=== PATIENT | male | born 1975 | race Caucasian/White ===

== ENCOUNTER 2019-05-19 05:14 | Day surgery (SDC) | payer BC ==
[~2019-05-19] VITALS: Ht 177.8 cm; Wt 124.7 kg
[~2019-05-19 05:14] MED LIST: FLOMAX0.4 MG PO; IBUPROFEN800 MG PO; OMEPRAZOLE20 M1 PO; ULTRAM50 MG PO; ZYRTEC10 MG PO
[2019-05-19 05:46] VITALS: BP 112/71; Ht 177.8 cm; Wt 124.7 kg
[2019-05-19] MEDS ORDERED: SMZ-TMP DS 800-1 TAB PO (07:47)
[2019-05-19] MEDS ORDERED: HYDROCODON-ACE1 EA10 PO (07:47)
--- NOTE | 2019-05-19 09:23 | NUR ---
908-DISCHARGE CRITERIA MET. DRESSINGS TO BILATERAL HANDS CDI. CAP REFILL WNL. ABLE TO WIGGLE DIGITS. DENIES PAIN. FINGERS WARM TO TOUCH. VSS. REVIEWED POST OPERATIVE INSTRUCTIONS AND FOLLOW UP APPOINTMENT. DR MOORE GAVE PAIN SCRIPT PRIOR TO SURGERY DAY. VERBALIZED UNDERSTANDING.
--- NOTE | 2019-05-19 09:25 | NUR ---
0918-ESCORTED OUT VIA W/C WITH SPOUSE TO DRIVE HOME.
--- NOTE | 2019-05-19 12:57 | OP ---
PATIENT NAME: SHILA MG MEDICAL RECORD: [id number] :75 [facility] AD[facility] DATE: SURGEON: BAL MOORE DO DATE OF OPERATION: 05/19/2019 PROCEDURE PERFORMED: Bilateral endoscopic carpal tunnel release. PREOPERATIVE DIAGNOSIS: Bilateral carpal tunnel syndrome. POSTOPERATIVE DIAGNOSIS: Bilateral carpal tunnel syndrome. 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 He had nerve conduction studies done there, which showed bilateral carpal tunnel syndrome. He said that they would fall asleep on him all the time when he was driving, talking on the phone or using them just randomly and his first 3 and half of his fourth digits would get numb and be painful, it would often wake him up at night. He is tired of dealing with that, want something done surgically about it. I have informed him of the risks including infection, bleeding, damage to the median nerve, the possibility of a transligamentous median nerve, motor branch to the thumb. He was aware of that and aware of all the risks and signed the consent. SURGEON: Bal Moore DO I was assisted by Weston Dixon, certified surgical payroll assistant. DESCRIPTION OF PROCEDURE: The patient was taken to the operative suite, laid in the supine position, given general anesthetic and LMA was placed. He was given a gram of vancomycin and the bilateral upper extremities were prepped and draped in sterile fashion. A timeout was performed, everyone was in agreement as to the correct side, site, patient and procedure. We then began with the right one. The right upper extremity was then exsanguinated and Esmarch tourniquet was inflated to 250 mmHg up to 12 minutes. I then made an incision along the distal wrist crease centered over the palmaris longus tendon and a Ragnell dissection was then made bluntly down to the median nerve. The fascia from the former was released from distal to proximal under direct visualization. I then entered the carpal tunnel with the dilators and the sheath was entered in. The camera was then entered in giving good view of the transverse carpal ligament. It was rasped and probed to ensure there was no transligamentous nerve. I did not see one. The blade was then brought in and raised up and transected the transverse carpal ligament and fat herniated down into the carpal tunnel. The sheath and blade and camera were then removed and a pickup and a Ragnell and scissor were used to visualize the transverse carpal ligament and seeing the two ends and any fibers that may have been connecting still were separatate by the scissors. The tourniquet was then let down and the site was injected with 10 mL of 0.25% Marcaine with epinephrine and it was closed with 5-0 Monocryl in inverted interrupted fashion and Dermabond placed on the incision. It was then wrapped with a 4 x 4, Kerlix and Coban lightly wrapped on it. The tourniquet was let down 12 minutes on the right. The left was then done in the same fashion and the tourniquet was let down at 10 minutes. He was then awakened and taken to recovery in stable condition. ESTIMATED BLOOD LOSS: Minimal. COMPLICATIONS: None. OPERATIVE REPORT [id number] SHILA MG TRANSINT:[id number] Voice Confirmation ID: [id number] DOCUMENT ID: [id number] BAL MOORE DO at 1257 CC: [id number] DICTATION DATE: 05/19/19 0745 GOLF COURSE LABORER: 05/19/19 1107 [facility] 05/19/19 [facility] [address] [place] [address]
== END 2019-05-19 09:18 | disposition home or self-care (01) ==
LOC: D.OPS 05:14 → D.PAN 07:00 → D.OPS 09:18
PROVIDERS: ATTEND Orthopaedic Surgery
DX: G56.03 Carpal tunnel syndrome, bilateral upper limbs (principal); S83.207A Unspecified tear of unspecified meniscus, current injury, left knee, initial encounter; X58.XXXA Exposure to other specified factors, initial encounter

== ENCOUNTER → 2019-05-24 12:22 | Outpatient (CLI) | payer BC ==
[2019-05-19 05:46] VITALS: BMI 39.5
[~2019-05-24 12:22] MED LIST changes: +HYDROCODON-ACE1 EA10 PO; +SMZ-TMP DS 800-1 TAB PO
== END | disposition home or self-care (01) ==
LOC: D.MRI 12:22
PROVIDERS: ATTEND Orthopaedic Surgery
DX: S83.207A Unspecified tear of unspecified meniscus, current injury, left knee, initial encounter (principal)

== ENCOUNTER 2019-06-01 09:20 | Day surgery (SDC) | payer BC ==
[~2019-06-01] VITALS: Ht 177.8 cm; Wt 125.6 kg
[2019-06-01 10:39] VITALS: BP 106/69; Ht 177.8 cm; Wt 125.6 kg
--- NOTE | 2019-06-01 11:50 | NUR ---
1135-REC'D FROM SURGERY. DROWSY,EASILY AROUSED WITH VERBAL STIMULI. VSS. DENIES PAIN. BERTRAND PATENT DRAINING LIGHT RED URINE IN BAG BY GRAVITY. REVIEWED DISCHARGE CRITERIA.VERBALIZED UNDERSTANDING
--- NOTE | 2019-06-01 11:52 | NUR ---
1150-FULL LIQUID TRAY TO ROOM.
--- NOTE | 2019-06-01 13:21 | NUR ---
1211-TOLERATED TRAY. DENIES PAIN.VSS. REVIEWED POST OPERATIVE INSTRUCTIONS AND FOLLOW UP APPOINTMENT, VERBALIZED UNDERSTANDING. PT TO WAIT IN ROOM UNTIL SPOUSE IS FINISHED WITH WORK. DISCHARGE CRITERIA IS MET.
--- NOTE | 2019-06-01 17:22 | OP ---
PATIENT NAME: SHILA MG MEDICAL RECORD: [id number] :75 LOCATION:[facility] ADMISSION DATE: SURGEON: TOBI PERAZA MD DATE OF OPERATION: 06/01/2019 SURGEON: Tobi Peraza MD ANESTHESIA: TIVA by Nagi Tolliver CRNA. 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 PROCEDURE: UroLift times 4 in box configuration around the bladder neck. FINDINGS: Obstructive bladder neck. Single ureteral orifices bilaterally with no bladder tumors. Inflamed bladder mucosa. BLOOD LOSS: None. CLINICAL HISTORY: This is a 43-year-old male who has obstructive voiding symptoms for over 1 year. He has been placed on Flomax by the [facility]. The Flomax has side effects including retrograde ejaculation and decrease in his short-term memory. His PSA was 0.75 at the [facility] one month ago. His IPSS score was 21 and quality of life score is 4 on the Flomax. He wishes to have the UroLift procedure done to get off the medication. He is allergic to PENICILLIN. He was given Levaquin IV agricultural economics teacher to the OR. DESCRIPTION OF PROCEDURE: The patient was given IV sedation. He was placed into lithotomy position and prepped and draped. The UroLift cystoscope was introduced and the findings are as outlined above. Four implants were placed at 1.5 cm distal to the bladder neck. The anterior pair were placed at the anterolateral sulcus with 1 unit being placed on each side. Then, at the mid urethral level, we placed 1 unit on each side. The bladder neck is opened, but it is a little bit tight still. I decided to place a Sensor wire into the bladder and over the wire a 16-[place] lumbee-tip Pearce catheter was inserted into the bladder. The balloon was inflated with 10 cc of sterile water. The catheter was put to bag drainage. I will see the patient in followup next week to remove the catheter for a voiding trial. TRANSINT:[id number] Voice Confirmation ID: [id number] DOCUMENT ID: [id number] TOBI PERAZA MD at 1722 CC: [id number] DICTATION DATE: 06/01/19 1137 UNDERCOVER OPERATOR: 06/01/19 1547 [facility] 06/01/19 [place] [address]
[2019-06-02 03:07] LABS: TESTOSTERONE - FREE 4.1 pg/mL (6.8-21.5); TESTOSTERONE - SERUM 220 ng/dL (264-916)
== END 2019-06-01 13:34 | disposition home or self-care (01) ==
LOC: D.OPS 09:20
PROVIDERS: ATTEND Urology
DX: N40.1 Benign prostatic hyperplasia with lower urinary tract symptoms (principal); R79.89 Other specified abnormal findings of blood chemistry; G56.03 Carpal tunnel syndrome, bilateral upper limbs; M25.562 Pain in left knee

== ENCOUNTER → 2019-09-22 10:50 | Outpatient (CLI) | payer BC ==
[2019-06-01 10:39] VITALS: BMI 39.8
[2019-09-25 07:08] LABS: TESTOSTERONE - FREE 13.8 pg/mL (6.8-21.5); TESTOSTERONE - SERUM 432 ng/dL (264-916)
== END | disposition home or self-care (01) ==
LOC: D.LAB 10:50
PROVIDERS: ATTEND Urology
DX: R79.89 Other specified abnormal findings of blood chemistry (principal)

== ENCOUNTER → 2019-11-22 15:45 | Outpatient (CLI) | payer BC ==
[2019-06-01 10:39] VITALS: BMI 39.8
== END | disposition home or self-care (01) ==
LOC: D.MRI 11-21 15:30
PROVIDERS: ATTEND Orthopaedic Surgery
DX: M25.562 Pain in left knee (principal)